=== PATIENT | female | born 1980 | race Caucasian/White ===

== ENCOUNTER 2017-10-12 08:52 | Emergency (ER) | payer OTHER ==
[~2017-10-12] VITALS: Ht 152.4 cm; Wt 81.6 kg
[2017-10-12] MEDS ORDERED: CYCLOBENZAPRINE5 M2 PO (09:41)
--- NOTE | 2017-10-12 09:41 | ED GENERAL ADULT ---
History of Present Illness General Chief Complaint: General Adult Stated Complaint: PT STATES"MY ANKLES FEEL BROKEN/WRISTS FEEL SPR" Source: patient, old records Exam Limitations: no limitations Vital Signs & Intake/Output Vital Signs & Intake/Output Vital Signs Date Time Temp Pulse Resp B/P B/P Pulse O2 O2 Flow FiO2 Mean Ox Delivery Rate 10/12 1014 98.0 76 18 112/75 98 Room Air Room Air 10/12 0858 98.4 106 18 107/73 98 Room Air Allergies Coded Allergies: succinylcholine (Severe, HYPOTHERMIA 10/12/17) Reconcile Medications Cyclobenzaprine HCl 5 MG TABLET 1 TAB PO TIDPRN PRN MUSCLE SPASM Triage Note: 36 YO FEMALE TO TRIAGE BY AMBULANCE C/O BILATERAL ANKEL AND HAND PAIN, REPORTS SHE HAS A HX OF CYSTIS AND STATES SHE TAKES METHADONE FOR SAME. PER ONCOLOGY PATIENT NAVIGATOR, EN ROUTE TO ER PT TOOK PO DILAUDID, XANAX AND CLONIDINE. DENIES ANY INJURY TO HANDS/FEET. PT ALSO STATES SHE CURRENTLY HAS THRUSH. Triage Nurses Notes Reviewed? yes Onset: Abrupt Duration: week(s): (1), constant Timing: recent history Injury Environment: home Severity: moderate, severe Severity Numbers: 10 No Modifying Factors: none Associated Symptoms: DENIES : No Patient currently breastfeeds: No HPI: 36-year-old female history of fibromyalgia on methadone, interstitial cystitis, as well as Dilaudid presents to ER complaining of bilateral feet ankle and hand pain going on for the past week. She denies any known injury or trauma. She states this feels similar to her fibromyalgia. Patient denies any chest pain abdominal pain urinary complaints today. She states that the clonidine she takes makes her mouth dry and is concerned she has thrush. In route she took a Dilaudid and Xanax which she states is both prescribed to her as well as the methadone. No numbness, chest pain abdominal pain fever chills (Steve MRIANDA,Alin) Past History Travel History Traveled to [place] past 21 day No Medical History Any Pertinent Medical History? see below for history Neurological: FIBROMYALGIA EENT: NONE Cardiovascular: TACHYCARDIA Respiratory: NONE Gastrointestinal: BLEEDING ULCERS Hepatic: NONE Renal: CYSTIS Musculoskeletal: NONE Psychiatric: NONE Endocrine: NONE Blood Disorders: NONE Cancer(s): NONE TORPEDO MAN/Reproductive: NONE Surgical History Surgical History: none Psychosocial History What is your primary language Honduran Tobacco Use: Never used Family History Hx Contributory? No (Alin Beltre) Review of Systems Review of Systems Constitutional: Reports: see HPI. Comments Review of systems: See HPI, All other systems negative. Constitutional, no chills no fever HEENT: no sore throat no congestion Cardiovascular: No chest pain Skin: no rashes, no change in skin Respiratory: No dyspnea no cough no sputum GI: No nausea no vomiting, Muscle skeletal: Chronic pain Neurologic: , no headache Heme/endocrine: No bruising Immunology: No lymphadenopathy (Alin Beltre) Physical Exam Physical Exam General Appearance: well developed/nourished, alert, awake Comments: Well-developed well-nourished patient in no apparent distress. HEENT: Atraumatic, extraocular motion intact no thrush noted to mouth Neck: Supple, FROM Back: FROM Cardiovascular: Regular rate and rhythms no murmurs rubs or gallops, Respiratory: Chest nontender.There were no bony deformities, no asymmetry. No respiratory distress. Patient speaking in full complete sentences. Breath sounds clear to auscultation bilaterally: NO W/R/R Extremities: full range of motion, atraumatic, 5 out of 5 strength noted to bilateral upper and lower extremities Neuro: awake, alert, and oriented to person, place and time. There were no obvious focal neurologic abnormalities. Skin: Warm & dry;No appreciable rash on exposed skin Psych: Mood affect normal, normal memory normal judgment. Core Measures ACS in differential dx? No CVA/TIA Diagnosis: No Sepsis Present: No Sepsis Focused Exam Completed? No (Alin Beltre) Progress Differential Diagnoses I considered the following diagnoses in my evaluation of the patient: [ Fibromyalgia chronic pain thrush Plan of Care: Current Medications Sig/Reyes Start time Last Medication Dose Stop Time Status Admin Ketorolac 30 MG ONCE ONE 10/12 944 UNVr Tromethamine 10/12 945 (Toradol) Methadone HCl 75 MG ONCE ONE 10/12 944 UNVr (Dolophine) 10/12 945 Discussed with patient plan of care that she is to follow-up with her primary care physician this week. From instructions were discussed at length. She feels comfortable with this plan and for discharge at this time Initial ED EKG: none (Alin Beltre) Departure Departure Disposition: HOME OR SELF CARE Condition: Stable Clinical Impression Primary Impression: Fibromyalgia Referrals: Ludwig LUBIN,Hoda Roldan MD (PCP/Family) Additional Instructions: Continue taking medications as prescribed. Flexeril as directed. Follow up with primary care physician next week. Departure Forms: Customer Survey General Discharge Information Prescriptions: Current Visit Scripts Cyclobenzaprine HCl 1 TAB PO TIDPRN PRN MUSCLE SPASM #10 TAB (Alin Beltre) PA/INFORMATION LEAD Co-Sign Statement Statement: ED Attending supervision documentation- [] I saw and evaluated the patient. I have also reviewed all the pertinent lab results and diagnostic results. I agree with the findings and the plan of care as documented in the PA's/INFORMATION LEAD's documentation. [X] I have reviewed the ED Record and agree with the PA's/INFORMATION LEAD's documentation. [] Additions or exceptions (if any) to the PAs/INFORMATION LEAD's note and plan are summarized below: [] (Jolanta LUBIN,Steve Mckinnon) Critical Care Note Critical Care Note Critical Care Time: non-applicable (Alin Beltre)
[2017-10-12 10:14] VITALS: BP 112/75
== END 2017-10-12 10:15 ==
LOC: ERH 08:52
DX: M79.7 Fibromyalgia (principal)
CPT/HCPCS: 96372; J1885